=== PATIENT | female | born 1980 | race American Indian/Alaskan Native ===

== ENCOUNTER 2020-08-02 15:53 | Outpatient (REF) | payer OTHER, SELFPAY ==
--- NOTE | 2020-08-02 16:06 | XR_ITS ---
EXAMINATION: XR ANKLE, RIGHT CLINICAL INFORMATION: Right ankle pain. COMPARISON: None TECHNIQUE: AP, lateral, and mortise views of the right ankle. FINDINGS: The bones and soft tissues are normal. No fracture. Alignment is anatomic. Joint spaces are maintained. No joint effusion. XR/XR ankle RT min 3V IMPRESSION: Unremarkable examination.
[2020-08-02 16:52] LABS: MANUAL DIFF FLAG NO
[2020-08-02 17:04] LABS: Basophils Absolute Auto 0.1 X10*3/uL (0.0-0.2); Basophils Percent Auto 0.8 % (0-2); Eosinophils Absolute Auto 0.2 X10*3/uL (0.0-0.4); Eosinophils Percent Auto 1.9 % (0-4); Hematocrit 42.6 % (37-47); Hemoglobin 13.7 g/dl (12.0-16.0); Imm Gran Abs Auto 0.02 X10*3/uL (0.00-0.03); Imm Gran Pct Auto 0.3 % (0.0-0.4); Lymphocytes Absolute Auto 2.5 X10*3/uL (1.2-4.9); Mean Corpuscular HGB Conc 32.2 g/dl (31.0-35.0); Mean Corpuscular Hemoglobin 30.4 pg (27.0-33.0); Mean Corpuscular Volume 94.7 fL (80-98); Mean Platelet Volume 10.6 fL (9.4-12.3); Monocytes Absolute Auto 0.7 X10*3/uL (0.1-1.2); Monocytes Percent Auto 8.8 % (2-11); Neutrophils Absolute Auto 4.5 X10*3/uL (2.0-8.3); Neutrophils Percent Auto 56.2 % (45-73); Platelet Count 405 X10*3/uL (160-400); Red Cell Distribution Width 12.9 % (11.0-16.0); White Blood Count 7.9 X10*3/uL (4.8-10.8)
[2020-08-02 17:23] LABS: Alanine Aminotransferase 21 U/L (0-31); Albumin Level 4.6 g/dL (3.5-5.0); Alkaline Phosphatase 79 U/L (39-117); Anion Gap 13 (12-20); Aspartate Amino Transferase 21 U/L (5-31); Bilirubin Total 0.6 mg/dL (0.0-1.0); Blood Urea Nitrogen 11 mg/dL (9-16); C Reactive Protein 1.17 mg/dL (< or = 0.50); Calcium 9.1 mg/dL (8.4-10.2); Carbon Dioxide 25 mmol/L (22-29); Chloride 106 mmol/L (96-108); Estimated Glomerular Filt Rate > 60; Glucose Random 95 mg/dL (60-115); Potassium 4.4 mmol/l (3.3-5.1); Sodium 140 mmol/L (135-145); Total Protein 7.8 g/dL (6.5-8.0); Uric Acid 5.3 mg/dL (2.4-5.7)
[2020-08-02 18:43] LABS: Erythrocyte Sedimentation Rate 16 MM/HR (0-20)
== END 2020-08-02 15:54 | disposition home or self-care (01) ==
LOC: HO.LAB 15:53
PROVIDERS: PCP Internal Medicine; Visit Provider Internal Medicine
DX: M25.571 Pain in right ankle and joints of right foot (principal)
CPT/HCPCS: 36415; 73610; 80053; 84550; 85025; 85652; 86140

== ENCOUNTER 2021-08-17 18:12 | Outpatient (REF) | payer OTHER, SELFPAY | END 2021-08-17 18:13 | disposition home or self-care (01) | LOC: HO.LNP 18:12 | PROVIDERS: Visit Provider Nurse Practitioner Family | DX: R30.0 Dysuria (principal) | CPT/HCPCS: 87086; 87088; 87186 ==

== ENCOUNTER 2024-04-07 08:46 | Outpatient (AMB) | payer OTHER, SELFPAY ==
[2024-04-07 08:49] VITALS: BP 120/72; PULSE 88; O2SAT 97; BMI 28.1
--- NOTE | 2024-04-07 08:49 | MHC.PC.OV ---
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 Accompanied by: Self / Same As Patient Allergies No Known Allergies [No Known Allergies*] Allergy (Unknown, Verified 04/08/24 10:10) Medication List - Last Reconciled 04/07/24 by Travis Alberts MD No Known Home Meds Tobacco use date assessed: 04/07/24 Dental Screening Dental Screen Date: 04/07/24 Did you have a dental visit in the last 12 months?: Yes Did you have a dental problem in the last 6 months where you did not have access to dental care?: No Was dental information given to patient?: Patient has dentist HPI Ovary Pain HPI Details 43-year-old female presents to the office for a sick visit. Patient is complaining of discomfort in the lower abdomen, especially before or during a menstrual period. In addition, in the past few days she is reporting symptoms of burning on urination. Patient is also requesting a director marketing communications appointment. No vaginal discharges. No fever or chills. [facility] Medical History Right ankle pain Migraine Renal cyst, right Overweight (BMI 25.0-29.9) Hypercholesterolemia Tobacco abuse Surgical History History of tubal ligation Family History Father Medical history unknown Mother Hypertension Son In good health Daughter In good health Social History Alcohol intake: current Alcohol intake frequency: holidays/special occasions only Cigarettes Per Day: 4 Questionnaire PHQ-9 Over the last 2 weeks, how often have you been bothered by any of the following problems? 1. Little interest or pleasure in doing things: not at all 2. Feeling down, depressed, or hopeless: not at all 3. Trouble falling or staying asleep, or sleeping too much: not at all 4. Feeling tired or having little energy: not at all 5. Poor appetite or overeating: not at all 6. Feeling bad about yourself - or that you are a failure or have let yourself or your family down: not at all 7. Trouble concentrating on things, such as reading the newspaper or watching television: not at all 8. Moving or speaking so slowly that other people could have noticed. Or the opposite - being so fidgety or restless that you have been moving around a lot more than usual: not at all 9. Thoughts that you would be better off or of hurting yourself in some way: not at all Total score: 0 Source: Developed by Drs. Aaron Mcknight, Kiera Bangura, Brayan Betancourt and colleagues, with an educational gadiel from [employer]. Thrive Questionnaire Date Thrive assessed: 04/07/24 I am a: Patient What is your living situation today?: I have a steady place to live Within the past 12 months, did the food you bought not last and you didn't have the money to get more?: Never true Within the past 12 months, did you worry whether your food would run out before you got money to buy more?: Never true Do you have trouble paying for medicines?: No Do you have trouble getting transportation to medical appointments?: No Do you have trouble paying your heating and electricity bill?: No Do you have trouble taking care of your child, family member or friend?: No Do you have trouble with day-to-day activities such as bathing, preparing meals, shopping, managing finances, etc.?: No Are you currently unemployed and looking for a job?: No Are you interested in more education?: No Please select the resources that you would like help with: None Currently or been in a relationship where the following occur: No concerns reported THRIVE Score: 0 AUDIT C Alcohol Use Questionnaire (AUDIT-C) 1. How often do you have a drink containing alcohol?: Monthly or less 2. How many drinks containing alcohol do you have on a typical day when you are drinking?: 1 or 2 3. How often do you have six or more drinks on one occasion?: Never Total Score: 1 JAYLON-7 AMB Questionnaire JAYLON-7 Date JAYLON - 7 assessed: 04/07/24 Feeling nervous, anxious, or on edge: 3 = Nearly every day Not being able to stop or control worryin = Not at all Worrying too much about different things: 1 = Several days Trouble relaxin = Several days Being so restless that it is hard to sit still: 0 = Not at all Becoming easily annoyed or irritable: 3 = Nearly every day Feeling afraid as if something awful might happen: 0 = Not at all Total JAYLON-7 score (0-4 normal; 5-9 mild; 10-14 moderate; 15-21 severe): 8 Source: Developed by Drs. Aaron Mcknight, Kiera Bangura, Brayan Betancourt and colleagues, with an educational gadiel from [employer]. Physical exam (Primary Care) Vital Signs: Last Vital Signs Pulse 88 04/07/24 08:49 BP 120/72 04/07/24 08:49 Pulse Ox 97 04/07/24 08:49 Oxygen Delivery Method Room Air 04/07/24 08:49 BMI result Body Mass Index 28.1 Tobacco/Smoking Status: Tobacco use Status Tobacco use date assessed 04/07/24 04/07/24 08:51 PHQ-9: PHQ-9 Score PHQ-9: Total score 0 04/07/24 09:32 Thrive Assessment: Date of Thrive Assessment Date Thrive assessed 04/07/24 04/07/24 08:51 Currently or been in a relationship where the following occur: No concerns reported Const General: cooperative and healthy appearing Nutritional Appearance: well nourished Orientation/consciousness: patient oriented x3 Limitations: no limitations HENTN Head: Yes normal to inspection Eyes General: appearance normal, both eyes and all related structures Neck Neck: Yes normal visual inspection Chest Chest palpation & inspection: normal palpation of entire chest wall Resp Effort & Inspection: normal respiratory effort Neuro General: patient oriented x3 Results AMB Urinalysis, Automated UA Leukoctes 2 Terrence/uL Last Edit by GREG Simental on 04/07/24 09:34 UA Nitrite Positive Last Edit by GREG Simental on 04/07/24 09:34 UA Urobilinogen 2 mg/dL Last Edit by GREG Simental on 04/07/24 09:34 UA Protein 1 mg/dL Last Edit by GREG Simental on 04/07/24 09:34 UA pH 5.5 Last Edit by GREG Simental on 04/07/24 09:34 UA Blood 0 Hi/uL Last Edit by GREG Simental on 04/07/24 09:34 UA Specific Balm 1.030 Last Edit by GREG Simental on 04/07/24 09:34 UA Ketone Positive Last Edit by GREG Simental on 04/07/24 09:34 UA Bilirubin 0 mg/dL Last Edit by GREG Simental on 04/07/24 09:34 UA Glucose 0 mg/dL Last Edit by GREG Simental on 04/07/24 09:34 Results Reviewed Results Reviewed: Laboratory Last Values Urine pH (Auto) 5.5 04/07/24 09:21 Specific Balm (Auto) 1.030 04/07/24 09:21 Urine Protein (Auto) 1 mg/dL H* 04/07/24 09:21 Glucose (UA)(Auto) 0 mg/dL 04/07/24 09:21 Urine Ketones (Auto) Positive A* 04/07/24 09:21 Urine Blood (Auto) 0 Hi/uL 04/07/24 09:21 Urine Nitrite (Auto) Positive 04/07/24 09:21 Urine Bilirubin (Auto) 0 mg/dL 04/07/24 09:21 Urine Urobilinogen (Auto) 2 mg/dL H* 04/07/24 09:21 Leukocyte Esterase (Auto) 2 Terrence/uL H* 04/07/24 09:21 Assessment and Plan Assessment & Plan (1) Abdominal pain: Code(s): R10.9 - Unspecified abdominal pain Plan: Urinalysis positive for infection. Patient has not had routine blood work done. Urine is also positive for ketones. Serum chemistry has been ordered. Antibiotics have been ordered. Wad Lubricator appointment has been scheduled. Follow-up with her primary care provider. Orders: Orders AMB Urinalysis Automated 04/07/24 Z13.9 - Encounter for screening, unspecified Basic Metabolic Panel 04/07/24 R10.9 - Unspecified abdominal pain Lipid Panel 04/07/24 R10.9 - Unspecified abdominal pain Liver Panel 04/07/24 R10.9 - Unspecified abdominal pain Thyroid Stimulating Hormone 04/07/24 R10.9 - Unspecified abdominal pain Complete Blood Count no Diff 04/07/24 R10.9 - Unspecified abdominal pain Medications: New sulfamethoxazole-trimethoprim 800-160 mg (Bactrim DS) 1 tab PO BID 10 tabs 0RF 5 days phenazopyridine (Pyridium) 200 mg PO TID 9 tabs 0RF 3 days Coding Level of Care Code Est Pt Level 4 (84867) Complex EM visit Add On G2211 Diagnoses Abdominal pain R10.9
== END 2024-04-07 09:39 | disposition home or self-care (01) ==
PROVIDERS: PCP Internal Medicine; Visit Provider Internal Medicine
DX: R10.9 Unspecified abdominal pain (principal)

== ENCOUNTER → 2024-04-07 08:46 | Outpatient (BNVA) | payer OTHER, SELFPAY | PROVIDERS: PCP Internal Medicine; Visit Provider Internal Medicine | DX: R10.9 Unspecified abdominal pain (principal) | CPT/HCPCS: 81003; 96127; 99212 ==

== ENCOUNTER 2024-06-24 12:56 | Outpatient (REF) | payer OTHER, SELFPAY ==
[2024-06-24 13:42] LABS: MANUAL DIFF FLAG NO
[2024-06-24 14:11] LABS: Basophils Percent Auto 0.4 % (0-2); Eosinophils Absolute Auto 0.1 X10*3/uL (0.0-0.4); Eosinophils Percent Auto 1.1 % (0-4); Hemoglobin 13.4 g/dl (12.0-16.0); Imm Gran Abs Auto 0.09 X10*3/uL (0.00-0.03); Imm Gran Pct Auto 0.9 % (0.0-0.4); Lymphocytes Absolute Auto 2.9 X10*3/uL (1.2-4.9); Lymphocytes Percent Auto 29.3 % (20-40); Mean Corpuscular HGB Conc 33.5 g/dl (31.0-35.0); Mean Corpuscular Hemoglobin 30.6 pg (27.0-33.0); Mean Corpuscular Volume 91.3 fL (80.0-98.0); Monocytes Absolute Auto 1.1 X10*3/uL (0.1-1.2); Monocytes Percent Auto 11.7 % (2-11); Neutrophils Absolute Auto 5.5 x10*3/uL (2.0-8.3); Neutrophils Percent Auto 56.6 % (45-73); Platelet Count 390 X10*3/uL (160-400); Red Blood Count 4.38 X10*6/uL (4.20-5.50); Red Cell Distribution Width 12.6 % (11.0-16.0); White Blood Count 9.8 X10*3/uL (4.8-10.8)
[2024-06-24 14:32] LABS: Appearance Urine Cloudy; Color Urine Yellow; Glucose Urine UA Negative (Negative); Leukocyte Esterase Urine Moderate (2+) (Negative); Nitrite Urine Positive (Negative); PH 5.5 (5.0-9.0); UMIC TRIGGER UACC YES; Urine Blood Small (1+) (Negative); Urine Ketones 15 mg/dL (Negative); Urine Protein 100 (2+) mg/dL (Neg-Trace)
[2024-06-24 14:47] LABS: Estimated Average Glucose 97 mg/dL; Hemoglobin A1C 112.9444 umol/L; Total Hemoglobin (HGBA1C) 3585.7259 umol/L
[2024-06-24 15:02] LABS: Bacteria Urine 4+ (None Seen); Hyaline Casts Urine 0-2 /LPF (0-2); RBC Urine 0-2 /HPF (0-2); UACC Culture Trigger YES
[2024-06-24 15:10] LABS: Alanine Aminotransferase 15 U/L (0-31); Albumin Level 4.2 g/dL (3.5-5.0); Alkaline Phosphatase 66 U/L (39-117); Anion Gap 13 (12-20); Aspartate Amino Transferase 17 U/L (5-31); Bilirubin Direct 0.2 mg/dL (0.0-0.5); Bilirubin Total 0.8 mg/dL (0.0-1.0); Blood Urea Nitrogen 12 mg/dL (9-16); Carbon Dioxide 23 mmol/L (22-29); Chloride 105 mmol/L (96-108); Cholesterol 198 mg/dL (<200); Estimated Glomerular Filt Rate > 60; Glucose Fasting 98 mg/dL (60-99); Glucose Random 98 mg/dL (60-115); HDL Cholesterol 50 mg/dL (>40); LDL Cholesterol Calculated 114 mg/dL (<100); Potassium 3.3 mmol/L (3.3-5.1); Sodium 138 mmol/L (135-145); Total Protein 7.8 g/dL (6.5-8.0); Triglycerides 173 mg/dL (<150)
[2024-06-24 15:30] LABS: TSH reflex Free T4 1.15 uIU/mL (0.32-4.0); Thyroid Stimulating Hormone 1.15 uIU/mL (0.32-4.0); Vitamin D 25-OH Total 8.9 ng/mL (>30)
== END 2024-06-24 12:57 | disposition home or self-care (01) ==
LOC: HO.LAB 12:56
PROVIDERS: PCP Internal Medicine; Visit Provider Internal Medicine
DX: R10.30 Lower abdominal pain, unspecified (principal); E78.2 Mixed hyperlipidemia; G43.909 Migraine, unspecified, not intractable, without status migrainosus; N28.1 Cyst of kidney, acquired; E66.3 Overweight; F17.210 Nicotine dependence, cigarettes, uncomplicated; D64.9 Anemia, unspecified; R30.0 Dysuria; R73.9 Hyperglycemia, unspecified; E55.9 Vitamin D deficiency, unspecified
CPT/HCPCS: 36415; 80048; 80053; 80061; 80076; 81001; 82248; 82306; 83036; 84443; 85025; 85027; 87086; 87088; 87186; 96127; 99212

== ENCOUNTER 2024-06-24 12:56 | Outpatient (AMB) | payer OTHER, SELFPAY ==
[2024-06-24 12:57] VITALS: BP 116/80; PULSE 93; O2SAT 95; BMI 27.7
--- NOTE | 2024-06-24 12:57 | A.OFFPC_ITS ---
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 Accompanied by: Self / Same As Patient Allergies No Known Allergies [No Known Allergies*] Allergy (Unknown, Verified 06/24/24 13:08) Medication List - Last Reconciled 06/24/24 by Wilner Jordan MD No Known Home Meds Tobacco use date assessed: 06/24/24 Dental Screening Dental Screen Date: 04/07/24 Did you have a dental visit in the last 12 months?: No Did you have a dental problem in the last 6 months where you did not have access to dental care?: No Was dental information given to patient?: Patient has dentist HPI Stomach Pain HPI Details Patient comes in today for further evaluation of lower abdominal pains that she states have been bothering her for a few days now She was last seen by me over 4 years ago on 07/28/2020 although she has been seen by other providers in the practice for acute issues a few times since then She was most recently seen here in March 2024 for similar symptoms and was diagnosed at the time with a UTI and treated with oral Bactrim DS, which patient states gradually cleared up her symptoms but her relief was short-lived as she states that her symptoms came back a couple of weeks after she finished taking the last of her Abx Rx She relates (+) low-grade fever and some chills last night; denies any headaches or dizziness lately She denies any chest pains, no increased SOB (+) nausea at times recently but denies any vomiting States that her abdominal pains are mostly over the lower abdomen, especially on the right side, and seems to feel worse when she uses the bathroom States that she is not constipated and has had no problems with her bowel movements lately She also has not had any of her recently ordered labs done yet - states that she has not yet eaten anything today and can go to the lab and get her tests done now after her appointment today [facility] Medical History (Updated 06/29/24 @ 23:59 by Wilner Jordan MD) Smoker Mixed hyperlipidemia Right ankle pain Migraine Renal cyst, right Overweight (BMI 25.0-29.9) Hypercholesterolemia Tobacco abuse Surgical History (Updated 06/24/24 @ 13:50 by Wilner Jordan MD) History of tubal ligation Family History Father Medical history unknown Mother Hypertension Son In good health Daughter In good health Social History Housing: Apartment Alcohol intake: current Alcohol intake frequency: holidays/special occasions only Cigarettes Per Day: 4 service: No Current occupational status: unemployed Cognitive needs: No Hearing needs: No Vision needs: No Questionnaire PHQ-9 Over the last 2 weeks, how often have you been bothered by any of the following problems? 1. Little interest or pleasure in doing things: not at all 2. Feeling down, depressed, or hopeless: not at all 3. Trouble falling or staying asleep, or sleeping too much: not at all 4. Feeling tired or having little energy: not at all 5. Poor appetite or overeating: not at all 6. Feeling bad about yourself - or that you are a failure or have let yourself or your family down: not at all 7. Trouble concentrating on things, such as reading the newspaper or watching television: not at all 8. Moving or speaking so slowly that other people could have noticed. Or the opposite - being so fidgety or restless that you have been moving around a lot more than usual: not at all 9. Thoughts that you would be better off or of hurting yourself in some way: not at all Total score: 0 Depression Screening Interpretation: Negative Depression Screening Done: Yes 67208 - PHQ-9 Billing: Yes Source: Developed by Drs. Aaron Mcknight, Kiera Bangura, Brayan Betancourt and colleagues, with an educational gadiel from [employer]. Thrive Questionnaire Date Thrive assessed: 06/24/24 I am a: Patient What is your living situation today?: I have a steady place to live Within the past 12 months, did the food you bought not last and you didn't have the money to get more?: Never true Within the past 12 months, did you worry whether your food would run out before you got money to buy more?: Never true Do you have trouble paying for medicines?: No Do you have trouble getting transportation to medical appointments?: No Do you have trouble paying your heating and electricity bill?: No Do you have trouble taking care of your child, family member or friend?: No Do you have trouble with day-to-day activities such as bathing, preparing meals, shopping, managing finances, etc.?: No Are you currently unemployed and looking for a job?: No Are you interested in more education?: No Please select the resources that you would like help with: None Currently or been in a relationship where the following occur: No concerns reported THRIVE Score: 0 AUDIT C Alcohol Use Questionnaire (AUDIT-C) 1. How often do you have a drink containing alcohol?: Monthly or less 2. How many drinks containing alcohol do you have on a typical day when you are drinking?: 1 or 2 3. How often do you have six or more drinks on one occasion?: Never Total Score: 1 Score Reviewed/Action Taken: Yes JAYLON-7 AMB Questionnaire JAYLON-7 Date JAYLON - 7 assessed: 06/24/24 Feeling nervous, anxious, or on edge: 3 = Nearly every day Not being able to stop or control worryin = Not at all Worrying too much about different things: 1 = Several days Trouble relaxin = Several days Being so restless that it is hard to sit still: 0 = Not at all Becoming easily annoyed or irritable: 3 = Nearly every day Feeling afraid as if something awful might happen: 0 = Not at all Total JAYLON-7 score (0-4 normal; 5-9 mild; 10-14 moderate; 15-21 severe): 8 Source: Developed by Drs. Aaron Mcknight, Kiera Bangura, Brayan Betancourt and colleagues, with an educational gadiel from [employer]. Review of Systems Const Reports chills (see HPI), Reports fatigue, Reports fever(s) (low grade ) and Denies headache(s) ENT Denies dysphagia, Denies dizziness, Denies otalgia, Denies headache(s), Denies neck pain, Denies odynophagia and Denies sore throat Card Denies chest pain, Denies palpitations and Denies dyspnea Resp Denies chest congestion, Denies cough and Denies dyspnea GI Reports abdominal pain (over the lower abdomen), Denies constipation, Denies dysphagia, Denies heartburn, Denies diarrhea, Reports nausea (at times), Denies odynophagia and Denies vomiting Denies hematuria, Denies difficulty voiding, Denies nocturia and Reports dysuria (dawson at times) Musc Denies back pain and Denies neck pain Skin/Breast Denies rash Neuro Denies dizziness and Denies headache(s) Endo Reports fatigue and Denies palpitations Physical exam (Primary Care) Vital Signs: Last Vital Signs Pulse 93 06/24/24 12:57 BP 116/80 06/24/24 12:57 Pulse Ox 95 06/24/24 12:57 Oxygen Delivery Method Room Air 06/24/24 12:57 BMI result Body Mass Index 27.7 Tobacco/Smoking Status: Tobacco use Status Tobacco use date assessed 06/24/24 06/24/24 13:06 PHQ-9: PHQ-9 Score PHQ-9: Total score 0 06/24/24 13:55 Depression Screening Interpretation: Negative Thrive Assessment: Date of Thrive Assessment Date Thrive assessed 06/24/24 06/24/24 13:06 Currently or been in a relationship where the following occur: No concerns reported Const General: no acute distress and alert HENMT Ears: TM's normal bilaterally and EAC's normal Throat: Yes posterior oropharynx normal and Yes tonsils normal (no TP congestion) Neck Neck: Yes no lymphadenopathy and Yes supple Thyroid: Thyroid normal Resp Auscultation: clear to auscultation bilaterally, no rales and no wheezes Cardio Rate: regular rate Rhythm: regular rhythm Heart sounds: no murmurs GI Palpation (GI): Soft to palpation, Tenderness to palpation present (GI) (over the lower abdomen (hypogastric area)), no guarding and not rigid General: Yes no CVA tenderness Back/Spine/Pelvis Back: no CVA tenderness Thoracic/Lumbar Spine: No lumbar spinal tenderness Skin Rashes: no rashes Extrem General: Yes no clubbing, cyanosis or edema Coding Level of Care Code Est Pt Level 4 (05504) Diagnoses Lower abdominal pain R10.30 Mixed hyperlipidemia E78.2 Migraine without status migrainosus, not intractable, unspecified migraine type G43.909 Migraine type: unspecified Status migrainosus presence: without status migrainosus Intractability: not intractable Renal cyst, right N28.1 Smoker F17.200 Overweight (BMI 25.0-29.9) E66.3 Additional Codes PHQ-9 - 57381 - PHQ-9 Billing: Yes ([id number]) Assessment & Plan Assessment & Plan (1) Lower abdominal pain: Code(s): R10.30 - Lower abdominal pain, unspecified Category: Medical Plan: Will send patient for some labs, including CBC and U/A, SARAI for further evaluation Will start her for now empirically on Bactrim DS 1 tablet BID x 7 days, pending further evaluation of her symptoms (2) Mixed hyperlipidemia: Code(s): E78.2 - Mixed hyperlipidemia Category: Medical Plan: Reinforced low cholesterol diet Will recheck her labs and fasting lipids SARAI for follow up (3) Migraine: Code(s): G43.909 - Migraine, unspecified, not intractable, without status migrainosus Category: Medical Qualifiers: Migraine type: unspecified Status migrainosus presence: without status migrainosus Intractability: not intractable Qualified Code(s): G43.909 - Migraine, unspecified, not intractable, without status migrainosus Plan: Patient states that her migraine headaches have been stable/controlled lately Reinforced avoidance of all potential migraine triggers (4) Renal cyst, right: Code(s): N28.1 - Cyst of kidney, acquired Category: Medical Plan: This appears to be resolved, as her last abdominal and pelvic CT done in 2019 showed no evidence of renal or urinary tract stones (5) Smoker: Code(s): F17.200 - Nicotine dependence, unspecified, uncomplicated Category: Social Hx Plan: Patient is counseled again on smoking cessation (6) Overweight (BMI 25.0-29.9): Code(s): E66.3 - Overweight Category: Medical Plan: Reinforced diet/exercise as tolerated/lose weight Plan Follow up in 3 months Orders: Orders Comprehensive [place]. Panel Fast 06/24/24 E78.00 - Pure hypercholesterolemia, unspecified Complete Blood Count Auto Diff 06/24/24 D64.9 - Anemia, unspecified Lipid Panel 06/24/24 E78.00 - Pure hypercholesterolemia, unspecified TSH reflex Free T4 06/24/24 E78.00 - Pure hypercholesterolemia, unspecified UA CC w/rflx Micro + Cult 06/24/24 R30.0 - Dysuria Vitamin D 25-OH Total 06/24/24 E55.9 - Vitamin D deficiency, unspecified Hemoglobin A1c 06/24/24 R73.9 - Hyperglycemia, unspecified Medications: New 2 sulfamethoxazole-trimethoprim 800-160 mg (Bactrim DS) 1 tab PO BID 7 days 14 tabs 0RF
== END 2024-06-24 13:18 | disposition home or self-care (01) ==
PROVIDERS: PCP Internal Medicine; Visit Provider Internal Medicine
DX: R10.30 Lower abdominal pain, unspecified (principal); E78.2 Mixed hyperlipidemia; G43.909 Migraine, unspecified, not intractable, without status migrainosus; N28.1 Cyst of kidney, acquired; F17.200 Nicotine dependence, unspecified, uncomplicated; E66.3 Overweight

== ENCOUNTER 2024-08-26 10:55 | Outpatient (REF) | payer OTHER, SELFPAY ==
[2024-08-27 09:07] LABS: Bacterial Vaginosis PCR NEGATIVE (Negative); Candida Group PCR DETECTED (Not Detect); Candida glab krusei PCR NOT DETECTED (Not Detect); Trichomonas vaginalis PCR NOT DETECTED (Not Detect)
[2024-08-27 10:37] LABS: CT PCR NOT DETECTED (Not Detect.); NG PCR NOT DETECTED (Not Detect.)
[2024-09-08 09:05] LABS: HPV Genotype 16 Negative (Negative); HPV Genotype 18 Negative (Negative); HPV High Risk Negative (Negative)
== END 2024-08-26 10:56 | disposition home or self-care (01) ==
LOC: HO.LNP 10:55
PROVIDERS: PCP Internal Medicine; Visit Provider Advanced Practice Midwife
DX: Z01.419 Encounter for gynecological examination (general) (routine) without abnormal findings (principal); R10.2 Pelvic and perineal pain; N39.0 Urinary tract infection, site not specified; N95.1 Menopausal and female climacteric states
CPT/HCPCS: 81515; 87491; 87591; 87626; 88175; 99386; 99459

== ENCOUNTER 2024-08-26 10:55 | Outpatient (AMB) | payer OTHER, SELFPAY ==
--- NOTE | 2024-08-26 11:12 | MHC.OFFVIS ---
Vital Signs 08/26/24 11:13 Height 5 ft 4 in Weight 164 lb BMI 28.1 BP 122/78 Intake Visit Reasons: R[facility] HEALTH CONSULTANT annual exam/RS appt Business Analytics Intern Required: No Business Analytics Intern Services: Business Analytics Intern Present Information Interpreted: clinical only Patent Law Specialist: Patent Law Specialist Present Allergies No Known Allergies [No Known Allergies*] Allergy (Unknown, Verified 08/26/24 11:13) Medication List - Last Reconciled 08/26/24 by Lorena Stark CNM No Known Home Meds Is last menstrual period known: Yes Last menstrual period: 08/21/24 HPI HPI RURAL HEALTH CONSULTANT annual exam/RS appt: Details: Patient is here for a analytical data miner annual exam it has been a few years since she has been seen for this. She is a patient from the midwifery team practice from the 90s and 2 thousands. Her last Pap smear in the system is from 2017 all were negative. She has a history of a tubal ligation she is and sexually active she does have a history of frequent UTIs she had least 4 she thinks last year 1 in March and 1 in June for which she received Bactrim and E coli grew out. She tells me she is due for mammogram as well She declines blood work for STIs She normally does not drink a lot a water but she has been told to and is trying to. She does not do exercise. Her only analytical data miner concern is that she gets a pain on her right side always the week before her period. And when she gets her period, it gets better and goes away. Also discussed symptoms she is experiencing and that she is wondering if she can attribute to perimenopause. Some of these include sleep issues anxiety and stress. She got her period when she was 7 years old and wonders if this can for cast when she will be done with her periods. [facility], [facility] Medical History Smoker Mixed hyperlipidemia Right ankle pain Migraine Renal cyst, right Overweight (BMI 25.0-29.9) Hypercholesterolemia Tobacco abuse Surgical History History of tubal ligation Family History Father Medical history unknown Mother Hypertension Son In good health Daughter In good health Social History Housing: Apartment Alcohol intake: current Alcohol intake frequency: holidays/special occasions only Cigarettes Per Day: 4 service: No Current occupational status: unemployed Cognitive needs: No Hearing needs: No Vision needs: No Female Reproductive History Menstrual Age of Menarche: 7 Duration of menses: 3-5 days Date of last menstrual period: 08/21/24 control method: permanent sterilization Total pregnancies: 3 Full term: 3 History of abnormal pap smear: No (2019 neg ,per patient) Physical Exam Vital Signs: Last Vital Signs BP 122/78 08/26/24 11:13 BMI result Body Mass Index 28.1 Const General: healthy appearing, comfortable, no acute distress, well developed and alert Nutritional Appearance: average body habitus Orientation/consciousness: patient oriented x3 Limitations: no limitations HEENT Head: Yes normocephalic Neck Neck: Yes normal visual inspection Chest Chest palpation & inspection: normal inspection of the chest Breast/axilla inspection: normal inspection of the breasts and normal inspection of the axillae Breast/axilla palpation: normal palpation of the breasts and normal palpation of the axillae Resp Effort & Inspection: normal respiratory effort GI Inspection: Yes normal to inspection, No Abdominal wall edema and No distended Palpation (GI): Soft to palpation and nontender Other: Normal external exam vagina pink and moist cervix multiparous pink smooth healthy appearing long close thick mobile nontender adnexa nontender nonenlarged good tone with Kegel, Close proximity/ angle of urethra to vagina noted and described and shown to patient w discussion.... General: Yes bladder normal to palpation External Female Exam: normal external appearance and normal appearance of the urethra Speculum Exam - Vagina: normal appearance of the vagina, normal palpation and normal vaginal discharge Speculum Exam - Cervix: normal appearance of the cervix, normal palpation and nontender Bimanual exam- vagina & uterus: normal bimanual exam, normal palpation, uterine size normal, bladder normal to palpation, consistency normal, normal palpation, uterine mobility normal, uterine shape normal, No Cervical tenderness present, non-tender and no cervical motion tenderness Bimanual Exam- Adnexa, other: normal adnexae, no masses, normal and No adnexal tenderness Neuro General: patient oriented x3 Results Reviewed Results Reviewed: Reviewed previous notes from patient's [facility] and also previous urine culture results and also previous Pap smears all negative including the most recent 1 from 2017 was negative. Sections of fallopian tubes from tubal ligation surgery [address] Alvarez. Assessment & Plan Assessment & Plan (1) Well woman exam with routine gynecological exam: Code(s): Z01.419 - Encounter for gynecological examination (general) (routine) without abnormal findings Category: Medical (2) Pelvic pain: Comment: Right sided, before her menses Code(s): R10.2 - Pelvic and perineal pain Category: Medical (3) Cervical cancer screening: Code(s): Z12.4 - Encounter for screening for malignant neoplasm of cervix Category: Medical (4) Breast cancer screening: Code(s): Z12.39 - Encounter for other screening for malignant neoplasm of breast Category: Medical (5) Frequent UTI: Code(s): N39.0 - Urinary tract infection, site not specified Category: Medical (6) Perimenopause: Code(s): N95.1 - Menopausal and female climacteric states Category: Medical Plan Patient is here for a analytical data miner annual exam it has been a few years since she has been seen for this. She is a patient from the midwifery team practice from the 90s and 2 thousands. Her last Pap smear in the system is from 2017 all were negative. She has a history of a tubal ligation she is and sexually active she does have a history of frequent UTIs she had least 4 she thinks last year 1 in March and 1 in June for which she received Bactrim and E coli grew out. She tells me she is due for mammogram as well She declines blood work for STIs She normally does not drink a lot a water but she has been told to and is trying to. She does not do exercise. -----Discussed in this visit the following: healthy balanced diet, regular and consistent exercise, getting recommended health screens, doing the best she can for her particular health concerns, kegel exercises, pap smear screening and followup recommendations, mammography screening and SBE, normal changes in cycles in her life stage--- . Discussed her concern of the pain on her right side that recurs monthly and it happens about the week before her. And then it gets better when her period comes. Discussed that most likely this is related to post ovulatory changes in her ovaries but it would make her feel better to check and have an ultrasound so we will have a visit after that I am requesting that the ultrasound be done after menses anticipating that if there were any cyst formation that happens monthly hopefully would be resolved by then, Discussed that we will follow-up what ever the results are. I am ordering a mammogram for her. She has her primary care follow-up in October. Discussed her history of frequent urinary tract infections and that she may want to discuss this with her primary care provider and consider whether not she needs a urology referral and that there were various strategies that are employed in this situation.. Discussed that some very simple things her due make sure she voids before she has sex void after having sex and consider the use of unsweetened cranberry juice along with drinking lots of water to acidify the urine and also flush out her urinary tract system frequently with water. Additionally discussed the relationship between intercourse and anatomy of the urethra in close proximity to the vagina and how any rubbing against the urethra in addition to be painful introduces bacteria into the urethra leading to UTIs discussed strategies to ameliorate this and suggest partner cooperation as well. ---Discussed normal changes that happen premenapausally, perimenapausally, and postmenopausally, and ways to handle them. Discussed the normal variation, and the range of experiences that women experience. Discussed nutrition, health, need for exercise, both weight-bearing and aerobic. Also discussed the normal changes that happen with vaginal mucosal thinning and sensitivity, and simple more natural ways of handling these challenges.. Discussed that many humans have many stressors especially in this time of life and years and that not all symptoms can be attributed to menopause discussed those that often are but maybe related to life stressors and also some symptoms that are related to the raya menopausal changes. Follow Up Timeframe/Date Comment Pelvic ultrasound, try to schedule after menses Follow-up visit after the Assembler Fluorescent Lights annual exams Orders: Orders MM tomosynthesis screening BI Today N39.0 - Urinary tract infection, site not specified, R10.2 - Pelvic and perineal pain, Z01.419 - Encounter for gynecological examination (general) (routine) without abnormal findings, Z12.31 - Encounter for screening mammogram for malignant neoplasm of breast, Z12.39 - Encounter for other screening for malignant neoplasm of breast, Z12.4 - Encounter for screening for malignant neoplasm of cervix US pelvic and transvaginal Today N39.0 - Urinary tract infection, site not specified, R10.2 - Pelvic and perineal pain, Z01.419 - Encounter for gynecological examination (general) (routine) without abnormal findings, Z12.39 - Encounter for other screening for malignant neoplasm of breast, Z12.4 - Encounter for screening for malignant neoplasm of cervix Coding Level of Care Code New Pt Prev Care 40-64y([id number]) Diagnoses Well woman exam with routine gynecological exam Z01.419 Pelvic pain R10.2 Cervical cancer screening Z12.4 Breast cancer screening Z12.39 Frequent UTI N39.0 Perimenopause N95.1 Time Spent (min) 45 Comment Discussed raya menopausal changes, analytical data miner symptoms, and UTI prevention
[2024-08-26 11:13] VITALS: BP 122/78; BMI 28.1
== END 2024-08-26 12:08 | disposition home or self-care (01) ==
PROVIDERS: PCP Internal Medicine; Visit Provider Advanced Practice Midwife
DX: Z01.419 Encounter for gynecological examination (general) (routine) without abnormal findings (principal); R10.2 Pelvic and perineal pain; N39.0 Urinary tract infection, site not specified
CPT/HCPCS: 99386; 99459

== ENCOUNTER 2024-08-26 14:24 | Outpatient (REF) | payer OTHER, SELFPAY | END 2024-08-26 14:25 | disposition home or self-care (01) | LOC: HO.LAB 14:24 | PROVIDERS: Visit Provider Advanced Practice Midwife | DX: Z13.89 Encounter for screening for other disorder (principal) ==

== ENCOUNTER 2025-07-13 15:53 | Outpatient (AMB) | payer OTHER, SELFPAY ==
[2025-07-13 16:14] VITALS: BP 130/62; PULSE 120; O2SAT 98; BMI 29.0
--- NOTE | 2025-07-13 16:14 | A.OFFPC_ITS ---
Vital Signs 07/13/25 16:14 Height 5 ft 4 in Weight 169 lb 2 oz BMI 29.0 BP 130/62 Blood Pressure Location Lt brachial Position Sitting Pulse 120 H Pulse Source Pulse Oximeter Pulse Oximetry (%) 98 Oxygen Delivery Method Room Air Intake Visit Reasons: 3 month f/u Director Of Sales Support Required: No Accompanied by: Self / Same As Patient Allergies No Known Allergies (No Known Allergies*) Allergy (Unknown, Verified 07/13/25 16:43) Medication List - Last Reconciled 07/13/25 by Wilner Jordan MD No Known Home Meds Tobacco use date assessed: 07/13/25 Dental Screening Dental Screen Date: 07/13/25 Did you have a dental visit in the last 12 months?: Yes Did you have a dental problem in the last 6 months where you did not have access to dental care?: No Was dental information given to patient?: Patient has dentist HPI 3 month f/u HPI Details last seen by me here in 06/2024 [facility] Medical History (Updated 07/13/25 @ 16:59 by Wilner Jordan MD) Restless leg syndrome Smoker Mixed hyperlipidemia Right ankle pain Migraine Renal cyst, right Overweight (BMI 25.0-29.9) Hypercholesterolemia Tobacco abuse Surgical History History of tubal ligation Family History Father Medical history unknown Mother Hypertension Son In good health Daughter In good health Social History Housing: Apartment Alcohol intake: current Alcohol intake frequency: holidays/special occasions only Cigarettes Per Day: 4 service: No Current occupational status: unemployed Cognitive needs: No Hearing needs: No Vision needs: No Female Reproductive History Menstrual Age of Menarche: 7 Questionnaire PHQ-9 Over the last 2 weeks, how often have you been bothered by any of the following problems? 1. Little interest or pleasure in doing things: not at all 2. Feeling down, depressed, or hopeless: not at all 3. Trouble falling or staying asleep, or sleeping too much: several days 4. Feeling tired or having little energy: several days 5. Poor appetite or overeating: not at all 6. Feeling bad about yourself - or that you are a failure or have let yourself or your family down: not at all 7. Trouble concentrating on things, such as reading the newspaper or watching television: not at all 8. Moving or speaking so slowly that other people could have noticed. Or the opposite - being so fidgety or restless that you have been moving around a lot more than usual: not at all 9. Thoughts that you would be better off or of hurting yourself in some way: not at all Total score: 2 Source: Developed by Drs. Aaron Mcknight, Kiera Bangura, Brayan Betancourt and colleagues, with an educational gadiel from [employer]. Thrive Questionnaire Date Thrive assessed: 07/13/25 I am a: Patient What is your living situation today?: I have a steady place to live Within the past 12 months, did the food you bought not last and you didn't have the money to get more?: Never true Within the past 12 months, did you worry whether your food would run out before you got money to buy more?: Never true Do you have trouble paying for medicines?: No Do you have trouble getting transportation to medical appointments?: No Do you have trouble paying your heating and electricity bill?: No Do you have trouble taking care of your child, family member or friend?: No Do you have trouble with day-to-day activities such as bathing, preparing meals, shopping, managing finances, etc.?: No Are you currently unemployed and looking for a job?: No Are you interested in more education?: No Please select the resources that you would like help with: None Currently or been in a relationship where the following occur: No concerns reported THRIVE Score: 0 AUDIT C Alcohol Use Questionnaire (AUDIT-C) 1. How often do you have a drink containing alcohol?: Monthly or less 2. How many drinks containing alcohol do you have on a typical day when you are drinking?: 5 or 6 3. How often do you have six or more drinks on one occasion?: Less than monthly Total Score: 4 JAYLON-7 AMB Questionnaire JAYLON-7 Date JAYLON - 7 assessed: 07/13/25 Feeling nervous, anxious, or on edge: 0 = Not at all Not being able to stop or control worryin = Not at all Worrying too much about different things: 0 = Not at all Trouble relaxin = Not at all Being so restless that it is hard to sit still: 0 = Not at all Becoming easily annoyed or irritable: 0 = Not at all Feeling afraid as if something awful might happen: 0 = Not at all Total JAYLON-7 score (0-4 normal; 5-9 mild; 10-14 moderate; 15-21 severe): 0 Source: Developed by Drs. Aaron Mcknight, Kiera Bangura, Brayan Betancourt and colleagues, with an educational gadiel from [employer]. Physical exam (Primary Care) Vital Signs: Last Vital Signs Pulse 120 H 07/13/25 16:14 BP 130/62 07/13/25 16:14 Pulse Ox 98 07/13/25 16:14 Oxygen Delivery Method Room Air 07/13/25 16:14 BMI result Body Mass Index 29.0 Tobacco/Smoking Status: Tobacco use Status Tobacco use date assessed 07/13/25 07/13/25 16:16 PHQ-9: PHQ-9 Score PHQ-9: Total score 2 07/13/25 16:44 Thrive Assessment: Date of Thrive Assessment Date Thrive assessed 07/13/25 07/13/25 16:16 Currently or been in a relationship where the following occur: No concerns reported Results AMB Urinalysis, Automated UA Leukoctes 0 Terrence/uL Last Edit by Liz Reece MA on 07/13/25 17: 07 UA Nitrite Negative Last Edit by Liz Reece MA on 07/13/25 17:0 7 UA Urobilinogen 0 mg/dL Last Edit by Liz Reece MA on 07/13/25 17:07 UA Protein 1 mg/dL Last Edit by Liz Reece MA on 07/13/25 17:07 UA pH 6.0 Last Edit by Liz Reece MA on 07/13/25 17:07 UA Blood 0 Hi/uL Last Edit by Liz Reece MA on 07/13/25 17:07 UA Specific Matthews 0 Last Edit by Liz Reece MA on 07/13/25 17 :07 UA Ketone Negative Last Edit by Liz Reece MA on 07/13/25 17:07 UA Bilirubin 0 mg/dL Last Edit by Liz Reece MA on 07/13/25 17:0 7 UA Glucose 0 mg/dL Last Edit by Liz Reece MA on 07/13/25 17:07 Coding Diagnoses Mixed hyperlipidemia E78.2 Migraine without status migrainosus, not intractable, unspecified migraine type G43.909 Intractability: not intractable Migraine type: unspecified Status migrainosus presence: without status migrainosus Renal cyst, right N28.1 Smoker F17.200 Overweight (BMI 25.0-29.9) E66.3 Restless leg syndrome G25.81 Assessment & Plan Assessment & Plan (1) Mixed hyperlipidemia: Code(s): E78.2 - Mixed hyperlipidemia Category: Medical Plan: Reinforced low cholesterol diet Will recheck her labs and fasting lipids SARAI for follow up (2) Migraine: Code(s): G43.909 - Migraine, unspecified, not intractable, without status migrainosus Category: Medical Qualifiers: Intractability: not intractable Migraine type: unspecified Status migrainosus presence: without status migrainosus Qualified Code(s): G43.909 - Migraine, unspecified, not intractable, without status migrainosus Plan: Patient states that her migraine headaches have been stable/controlled lately Reinforced avoidance of all potential migraine triggers (3) Renal cyst, right: Code(s): N28.1 - Cyst of kidney, acquired Category: Medical Plan: This appears to be resolved, as her last abdominal and pelvic CT done in 2019 showed no evidence of renal or urinary tract stones (4) Smoker: Code(s): F17.200 - Nicotine dependence, unspecified, uncomplicated Category: Social Hx Plan: Patient is counseled again on smoking cessation (5) Overweight (BMI 25.0-29.9): Code(s): E66.3 - Overweight Category: Medical Plan: Reinforced diet/exercise as tolerated/lose weight (6) Restless leg syndrome: Code(s): G25.81 - Restless legs syndrome Category: Medical Plan Follow up in 3 months Orders: Orders AMB Urinalysis Automated Today Z13.9 - Encounter for screening, unspecified Comprehensive [place]. Panel Fast Today E78.00 - Pure hypercholesterolemia, unspec ified Lipid Panel Today E78.00 - Pure hypercholesterolemia, unspecified TSH reflex Free T4 Today E78.00 - Pure hypercholesterolemia, unspecified UA CC w/rflx Micro + Cult Today R30.0 - Dysuria Vitamin D 25-OH Total Today E55.9 - Vitamin D deficiency, unspecified MM tomosynthesis screening BI Today Z12.31 - Encounter for screening mammogram for malignant neoplasm of breast Complete Blood Count Auto Diff Today D64.9 - Anemia, unspecified Vitamin B12 and Folate Today E53.8 - Deficiency of other specified B group vitamins Medications: New nitrofurantoin monohyd/m-cryst 100 mg (Macrobid) must administer with a meal/food 100 mg PO Q12H 10 caps 0RF 5 days gabapentin 100 mg PO BEDTIME 30 caps 3RF 30 days G25.81 - Restless legs syndrome cholecalciferol (vitamin D3) 50 mcg PO DAILY 90 caps 3RF 90 days E55.9 - Vitamin D deficiency, unspecified
== END 2025-07-13 17:09 | disposition home or self-care (01) ==
LOC: HO.HMCH 15:53
PROVIDERS: PCP Internal Medicine; Visit Provider Internal Medicine
DX: Z13.9 Encounter for screening, unspecified (principal)

== ENCOUNTER → 2025-07-13 15:53 | Outpatient (BNVA) | payer OTHER, SELFPAY | PROVIDERS: PCP Internal Medicine; Visit Provider Internal Medicine | DX: E78.2 Mixed hyperlipidemia (principal); G43.909 Migraine, unspecified, not intractable, without status migrainosus; G25.81 Restless legs syndrome; N28.1 Cyst of kidney, acquired; E66.3 Overweight; F17.200 Nicotine dependence, unspecified, uncomplicated; Z13.31 Encounter for screening for depression; Z13.39 Encounter for screening examination for other mental health and behavioral disorders | CPT/HCPCS: 81003; 96127; 99212 ==